=== PATIENT | female | born 1965 | race Caucasian/White ===

== ENCOUNTER 2017-02-07 21:29 | Emergency (ER) | payer BC ==
[~2017-02-07] VITALS: Ht 172.7 cm; Wt 121.6 kg
[2017-02-07 21:38] VITALS: Ht 172.7 cm; Wt 121.6 kg
[2017-02-07 22:17] VITALS: BP 171/91
== END 2017-02-07 22:17 | disposition home or self-care (01) ==
LOC: ED 21:29
DX: M25.551 Pain in right hip (principal); I10 Essential (primary) hypertension; Z88.1 Allergy status to other antibiotic agents; Z88.6 Allergy status to analgesic agent; Z88.5 Allergy status to narcotic agent